=== PATIENT | male | born 1950 | race Two or more races ===

== ENCOUNTER 2016-07-08 09:13 | Day surgery (SDC) | payer OTHER ==
[2016-07-05 13:18] VITALS: BMI 26.4
[~2016-07-08 09:13] MED LIST: LACTATED RINGERS 1,000 ML IV SCH
[2016-07-08 10:14] VITALS: RESP 16; TEMP 97.8
[2016-07-08] MEDS ORDERED: LIDOCAINE 1% 20 ML VIAL (10MG/ML) FOR IV START INTRADERMA ONE (10:17)
[2016-07-08] MEDS ORDERED: PROPOFOL 10 MG/ML 20 ML VIAL IV ONE (11:22)
[2016-07-08] MEDS ORDERED: LIDOCAINE 1% INJ 10MG/ML (20 ML MDV) ONE (11:22)
--- NOTE | 2016-07-08 11:44 | P.PCN ---
Date of Procedure: 07/08/16 Procedure(s) Performed: Procedure: Total colonoscopy. Preoperative diagnosis: Hemoccult-positive stools. Postoperative diagnosis: Mild sigmoid diverticulosis with no evidence of acute diverticulitis, strictures, polyps or cancer. Preparation: HalfLytely prep. Sedation: Was provided by anesthesia. Brief clinical history: The patient is a 65-year-old male who is referred for this evaluation for finding of blood in his stools. He has no abdominal complaints, bleeding or anemia. No family history of colon cancer. This would be his first colonoscopy. Procedure: With the patient on his left lateral decubitus position and after informed consent and adequate sedation, the perianal area was inspected and it did not show any fissures or fistulas. There were no masses felt on digital rectal examination. The Olympus CFQ 160L video colonoscope was then inserted in the rectum in the usual fashion and advanced to the cecum. There was occasional small diverticular orifices seen scattered in the sigmoid with no evidence of acute diverticulitis or strictures. The mucosa appeared healthy. No polyps or tumors were seen. I retroflexed endoscope in the rectum before the endoscope was withdrawn. The patient tolerated the procedure well. Plan: The patient was reassured. Discussed dietary measures. In The absence of upper GI complaints or anemia, I did not recommend upper GI workup for the Hemoccult-positive stools finding. This can be kept as a contingency. For screening for colon neoplasia, I am recommending repeat colonoscopy in 10 years. He will follow up with you as planned.
[2016-07-08 12:07] VITALS: BP 132/72; PULSE 72
== END 2016-07-08 12:28 | disposition home or self-care (01) ==
LOC: ORWHC2ENDO 09:13
DX: K57.30 Diverticulosis of large intestine without perforation or abscess without bleeding (principal); R19.5 Other fecal abnormalities
CPT/HCPCS: 45378; J2001; J2704

== ENCOUNTER 2019-04-11 13:27 | Emergency (ER) | payer OTHER ==
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
--- NOTE | 2019-04-11 15:49 | US ---
EXAMINATION TYPE: US venous doppler duplex LE LT DATE OF EXAM: 04/11/2019 3:30 PM COMPARISON: NONE CLINICAL HISTORY: superficial thrombosis palpable- r/o DVT. Pain in calf. SIDE PERFORMED: Left TECHNIQUE: The lower extremity deep venous system is examined utilizing real time linear array sonog ayana with graded compression, doppler sonography and color-flow sonography. VESSELS IMAGED: External Iliac Vein (EIV) Common Femoral Vein Deep Femoral Vein Greater Saphenous Vein * Femoral Vein Popliteal Vein Small Saphenous Vein * Proximal Calf Veins (* superficial vessels) Left Leg: Negative for DVT Superficial thrombophelbitis in left calf. IMPRESSION: 1. No evidence of DVT. 2. There are dilated thrombosed superficial veins compatible with superficial thrombophlebitis.
[2019-04-11 16:11] VITALS: BP 162/90; PULSE 76; RESP 17; TEMP 97.9
== END 2019-04-11 16:11 | disposition home or self-care (01) ==
LOC: EC 13:27
DX: I80.3 Phlebitis and thrombophlebitis of lower extremities, unspecified (principal); R03.0 Elevated blood-pressure reading, without diagnosis of hypertension; Z87.891 Personal history of nicotine dependence; Z79.899 Other long term (current) drug therapy
CPT/HCPCS: 99283

== ENCOUNTER → 2023-12-13 | Outpatient (CLI) | payer OTHER ==
--- NOTE | 2023-12-13 14:53 | US ---
EXAMINATION TYPE: US mass soft tissue chest/back DATE OF EXAM: 12/13/2023 COMPARISON: NONE CLINICAL INDICATION: Male, 73 years old with history of R60.9 EDEMA; Lump left upper back TECHNIQUE: FINDINGS: Hypoechoic areas seen largest 6.2 x 2.0 cm IMPRESSION: There is a large 6.2 cm hypoechoic nonspecific mass. Palpable abnormality with some inte rnal vascularity. Could be related to lipoma. Other etiologies not excluded recommend follow-up MRI.
== END | disposition home or self-care (01) ==
LOC: RADUSWWP 13:59
PROVIDERS: ATTEND Family Medicine
DX: R22.2 Localized swelling, mass and lump, trunk (principal)